=== PATIENT | female | born 1935 | race Caucasian/White ===

== ENCOUNTER 2017-01-11 20:59 | Emergency (ER) | payer OTHER, MEDICARE ==
[2017-01-11 21:08] VITALS: BP 187/83; PULSE 72; TEMP 97.7; BMI 25.0
[2017-01-11] MEDS ORDERED: ALPRAZolam 0.25 MG TABLET ONE (21:22)
--- NOTE | 2017-01-11 21:22 | PDOC ---
History of Present Illness - General History Source: Patient Exam Limitations: No Limitations - History of Present Illness Initial Comments: 01/11/17 21:38 The patient is a 81 year old female with a significant past medical history of menieres disease and htn, who presents to the ED accomapanied with daughter and friend for high bp of 157/90. Patient was at PCP Dr. Bentley earlier today for high BP, had a cardiogram done, and was diagnosed with anxiety. He informed her to go home and take an extra Valsartan pill. Patient states her symptoms still persisted and decided to come in to the ED. She states she had a dry cough, cold, vertigo 2 weeks ago. She was taking Delsym prescribed by her Dr. Bentlye. However, she states she was taking it 1-2 times more than she was prescribed to. She denies fever, chills, nausea, vomiting, diarrhea. She denies SOB, chest pain. PAST MEDICAL HISTORY: menieres disease and htn PAST SURGICAL HISTORY: no significant history FAMILY HISTORY: no pertinent history SOCIAL HISTORY: Pt lives with family and is employed. MEDICATIONS: reviewed ALLERGIES: As per nursing notes ROS General: No fevers or chills, no weakness, no weight loss HEENT: No change in vision. No sore throat,. No ear pain CardioVascular: + high bp. + palpitations. No chest pain or shortness of breath. Respiratory:No cough, or wheezing. Gastrointestinal: no nausea, vomiting, diarrhea or constipation, No rectal bleeding Genitourinary: No dysuria, hematuria, or frequency Musculoskeletal: No joint or muscle pain or swelling Neurologic: No headache, vertigo, dizziness or loss of consciousness Psychiatric: + anxiety. no depression Skin: No rashes or easy bruising Endocrine: no increased thirst or abnormal weight change Allergic: no skin or latex allergy All other systems reviewed and normal Exam: General: Well-nourished well-developed individual, no acute distress HEENT: Throat: Normal, tonsils normal, no erythema or exudate Neck: Supple, no meningeal signs, no lymphadenopathy Eyes::Pupils equal reactive and round, extraocular motion intact Chest: Nontender to palpation Cardiac: S1-S2 normal, regular rate and rhythm, no murmurs rubs or gallops Respiratory: Lungs clear to auscultation bilateral Abdomen: Soft, nondistended, normal bowel sounds, nontender to palpation diffusely Extremities: Warm, dry, no cyanosis, clubbing, or edema Skin: No rashes Neuro: Alert and oriented x3, nonfocal exam, grossly intact, normal gait Psych: Normal mood and affect <Ronald Cabrera - Last Filed: 01/11/17 21:52> - General History Source: Patient Exam Limitations: No Limitations - History of Present Illness Initial Comments: 01/11/17 21:59 A portion of this note was documented by scribe services under my direction. I have reviewed the details of the note, within reason, and agree with the documentation. The case summary and management plan written by me. Assessment and plan: This is an 81-year-old female comes in with anxiety and palpitations. Patient was at her primary care doctor today for these symptoms and was evaluated and told that her blood pressure was a little high and to go home and take an extra blood pressure pill. However patient did not tell her primary care doctor that she was taking her Delsym that he had prescribed to 2-3 times a day instead of only once a day. I explained to the patient and her daughter that her symptoms were most likely secondary to the Delsym that she was taking as side effects of taking too much were the symptoms that she was complaining of. I told her to stop taking the Delsym and symptoms should improve in addition to that he did give her a little is an ex and she was discharged home and will stay with either her daughter her friend evelyn. She will follow-up with Dr. Torres tomorrow if symptoms are still persisting <Salo Gustafson I - Last Filed: 01/11/17 22:00> - General Chief Complaint: Psychiatric Stated Complaint: ANXIOUS Time Seen by Provider: 01/11/17 21:05 Past History <Ronald Cabrera - Last Filed: 01/11/17 21:52> - Past Medical History HTN: Yes - Psycho/Social/Smoking Cessation Hx Anxiety: No Suicidal Ideation: No Smoking Status: No Smoking History: Never smoked Have you smoked in the past 12 months: No Number of Cigarettes Smoked Daily: 0 Information on smoking cessation initiated: No Hx Alcohol Use: No Drug/Substance Use Hx: No Substance Use Type: None Hx Substance Use Treatment: No <Salo Gustafson I - Last Filed: 01/11/17 22:00> - Past Medical History Allergies/Adverse Reactions: Allergies Allergy/AdvReac Type Severity Reaction Status Date / Time No Known Allergies Allergy Verified 01/11/17 21:01 Home Medications: Ambulatory Orders Calcium Carbonate/Vitamin D3 [Caltrate 600 Plus D3 Tablet] 1 each PO BID tablet 09/04/12 *Physical Exam - Vital Signs Last Vital Signs Temp Pulse Resp BP Pulse Ox 97.7 F 72 16 187/83 100 01/11/17 21:04 01/11/17 21:04 01/11/17 21:04 01/11/17 21:04 01/11/17 21:04 <Ronald Cabrera - Last Filed: 01/11/17 21:52> - Vital Signs Last Vital Signs Temp Pulse Resp BP Pulse Ox 97.7 F 72 16 187/83 100 01/11/17 21:04 01/11/17 21:04 01/11/17 21:04 01/11/17 21:04 01/11/17 21:04 <Salo Gustafson I - Last Filed: 01/11/17 22:00> ED Treatment Course - Medications Given in the ED: ED Medications Discontinued Medications Generic Name Dose Route Start Last Admin Trade Name Freq PRN Reason Stop Dose Admin Alprazolam 0.25 mg 01/11/17 21:24 01/11/17 21:31 Xanax - PO 01/11/17 21:25 Not Given ONCE ONE Alprazolam 0.25 mg 01/11/17 21:32 01/11/17 21:32 Xanax - PO 01/11/17 21:33 0.25 mg NOW ONE Administration <Ronald Cabrera - Last Filed: 01/11/17 21:52> *DC/Admit/Observation/Transfer - Attestations Scribe Attestion: 01/11/17 21:40 Documentation prepared by Ronald Cabrera, acting as medical resident for Salo Gustafson MD. <Ronald Cabrera - Last Filed: 01/11/17 21:52> - Discharge Dispostion Admit: No <Salo Gustafson I - Last Filed: 01/11/17 22:00> Diagnosis at time of Disposition: Anxiety Medication reaction Qualifiers: Encounter type: initial encounter Qualified Code(s): T88.7XXA - Unspecified adverse effect of drug or medicament, initial encounter - Discharge Dispostion Disposition: HOME Condition at time of disposition: Stable - Referrals Referrals: Ricardo Bentley MD [Primary Care Provider] - - Patient Instructions Additional Instructions: Stop taking the Delsyn, side effects of the Delsyn can include, excitement, nervousness, restlessness. Otherwise continue all your medications as prescribed. Return to the emergency department immediately with ANY new, persistent or worsening symptoms. Continue any medications as previously prescribed by your physician. You should follow up with your primary doctor as soon as possible regarding today's emergency department visit. . Please make sure your doctor reviews the results of your emergency evaluation. Thank you for coming to the Emergency Department today for your care. It was a pleasure to see you today. Please note that your evaluation is INCOMPLETE until you follow-up with your doctor.
[2017-01-11] MEDS ORDERED: ALPRAZolam 0.25 MG TABLET PO ONE ×2 (21:24→21:32)
== END 2017-01-11 21:39 | disposition home or self-care (01) ==
LOC: FER 20:59
DX: T88.7XXA Unspecified adverse effect of drug or medicament, initial encounter (principal); X58.XXXA Exposure to other specified factors, initial encounter; Y93.89 Activity, other specified; Y92.9 Unspecified place or not applicable; F41.9 Anxiety disorder, unspecified
CPT/HCPCS: 99281-25